=== PATIENT | female | born 1955 | race Caucasian/White ===

== ENCOUNTER 2017-04-15 23:14 | Emergency (ER) | payer BC ==
[2017-04-15 23:20] VITALS: O2SAT 96
--- NOTE | 2017-04-15 23:29 | EDPHY ---
H & P Stated Complaint: red rash on back spreading HPI/ROS: HPI CHIEF COMPLAINT: Rash on back, itchy. HISTORY OF PRESENT ILLNESS: This patient is a 62 otherwise healthy female no significant medical history presents to the emergency room with a rash on her back. Patient reports to me that she is here in [place] she arrived today she is visiting from [facility] she is here for wedding. She states that she has noticed a lesion on her back for approximately a month. She thought was a bug bite. Is not caused her any pain. She has not had any fever joint pain or malaise. She does report tonight that she noticed the rash seemed to be spreading. She called her health insurance hotline was advised to come to the emergency room. Here in the emergency room she appears well nontoxic in no acute distress resting comfortably. She has no fever. The rash itches her periods located on her back. She denies any medical history Past Medical History: Denies medical history does not take any medication Past Surgical History: Denies surgical history Social History: Lives in [facility]. Denies drugs alcohol tobacco. Here for wedding. She is here till Wednesday. Family History: Noncontributory ROS REVIEW OF SYSTEMS: A comprehensive 10 point review of systems is otherwise negative aside from elements mentioned in the history of present illness. Exam Constitutional appears well nontoxic triage nursing summary reviewed, vital signs reviewed, awake/alert. Eyes normal conjunctivae and sclera, EOMI, PERRLA. HENT normal inspection, atraumatic, moist mucus membranes, no epistaxis, neck supple/ no meningismus, no raccoon eyes. Respiratory clear to auscultation bilaterally, normal breath sounds, no respiratory distress, no wheezing. Cardiovascular rate normal, regular rhythm, no murmur, no edema, distal pulses normal. Gastrointestinal soft, non-tender, no rebound, no guarding, normal bowel sounds, no distension, no pulsatile mass. Genitourinary no CVA tenderness. Musculoskeletal no midline vertebral tenderness, full range of motion, no calf swelling, no tenderness of extremities, no meningismus, good pulses, neurovascularly intact. Skin on her back: Left flank region there is a area of darkenking skin pigmentation that is red. There is no fluctuance. No abscess. Does not appear cellulitic. It is not painful. There is no scale. And then surrounding this approximately most for back or about 3/4 of her back in circumference 10 cm x 15 cm with central clearing. There is no raised edges. Neurologic awake, alert and oriented x 3, AAOx3, moves all 4 extremities equally, motor intact, sensory intact, CN II-XII intact, normal cerebellar, normal vision, normal speech. Psychiatric normal mood/affect. Heme/Lymph/Immune no lymphadenopathy. Differential Diagnosis: Includes but is not limited to in a particular order tick borne illness, take born rash, Lyme disease, [place] spotted fever, pityriasis rosacea, vasculitis, cellulitis, MRSA Medical Decision Making: Plan for this patient she appears well nontoxic she does not have a fever here. This rash does not appear to have any petechiae or purpura. Is not warm. It is itchy. There is area of central clearing. She is from [facility]. She does walk her dog in the [place] in her dogs do get Tics. I will start her on doxycycline. 1st dose given in emergency room. A prescription will be given for doxycycline. She is in [facility] till Wednesday. She does understand she develops fever, worsening rash or does not feel well or have any questions or concerns she is to return to the emergency room. When she returns to [place] she should follow up with primary care doctor she understands. Will check basic blood work here. Re-evaluation: 1230AM: Patient resting comfortably no acute distress. She was initially tachycardic at triage due to anxiety. Heart rate is improved down to 100. She has no complaints. She appears well. Started on doxy here in the emergency room. Return precautions given. She understands blood work has been reviewed no high white count. Inflammatory markers are negative. Source: Patient - Personal History Current Tetanus/Diphtheria Vaccine: No - Medical/Surgical History Hx Asthma: No Hx Chronic Respiratory Disease: No Hx Diabetes: No Hx Cardiac Disease: No Hx Renal Disease: No Hx Cirrhosis: No Hx Alcoholism: No Hx HIV/AIDS: No Hx Splenectomy or Spleen Trauma: No Other PMH: denies - Social History Smoking Status: Never smoked Constitutional: Initial Vital Signs Temperature (C) 36.5 C 04/15/17 23:17 Heart Rate 122 H 04/15/17 23:17 Respiratory Rate 18 04/15/17 23:17 Blood Pressure 162/91 H 04/15/17 23:17 O2 Sat (%) 96 04/15/17 23:17 O2 Delivery Mode Room Air Allergies/Adverse Reactions: No Known Allergies Allergy (Unverified 04/15/17 23:20) Home Medications: Medication Instructions Recorded Doxycycline Hyclate 100 mg PO BID #14 tablet 04/15/17 Medical Decision Making - Data Points Laboratory Results: Laboratory Results 04/15/17 23:35 04/15/17 23:35 04/15/17 04/15/17 23:35 23:35 WBC 4.68 10^3/uL 10^3/uL (3.80-9.50) RBC 4.64 10^6/uL 10^6/uL (4.18-5.33) Hgb 14.8 g/dL g/dL (12.6-16.3) Hct 40.9 % % (38.0-47.0) MCV 88.1 fL fL (81.5-99.8) MCH 31.9 pg pg (27.9-34.1) MCHC 36.2 g/dL g/dL (32.4-36.7) RDW 11.3 % L % (11.5-15.2) Plt Count 291 10^3/uL 10^3/uL (150-400) MPV 9.2 fL fL (8.7-11.7) Neut % (Auto) 59.2 % % (39.3-74.2) Lymph % (Auto) 27.8 % % (15.0-45.0) [place] % (Auto) 12.2 % % (4.5-13.0) Eos % (Auto) 0.0 % L % (0.6-7.6) Baso % (Auto) 0.4 % % (0.3-1.7) Nucleat RBC Rel Count 0.0 % % (0.0-0.2) Absolute Neuts (auto) 2.77 10^3/uL 10^3/uL (1.70-6.50) Absolute Lymphs (auto) 1.30 10^3/uL 10^3/uL (1.00-3.00) Absolute Monos (auto) 0.57 10^3/uL 10^3/uL (0.30-0.80) Absolute Eos (auto) 0.00 10^3/uL L 10^3/uL (0.03-0.40) Absolute Basos (auto) 0.02 10^3/uL 10^3/uL (0.02-0.10) Absolute Nucleated RBC 0.00 10^3/uL 10^3/uL (0-0.01) Immature Gran % 0.4 % % (0.0-1.1) Immature Gran # 0.02 10^3/uL 10^3/uL (0.00-0.10) ESR 17 MM/HR MM/HR (0-30) Sodium 144 mEq/L mEq/L (134-144) Potassium 3.3 mEq/L L mEq/L (3.5-5.2) Chloride 103 mEq/L mEq/L (97-110) Carbon Dioxide 25 mEq/l mEq/l (22-31) Anion Gap 16 mEq/L mEq/L (8-16) BUN 15 mg/dL mg/dL (7-23) Creatinine 0.9 mg/dL mg/dL (0.6-1.0) Estimated GFR > 60 Glucose 123 mg/dL H mg/dL (70-100) Calcium 9.5 mg/dL mg/dL (8.5-10.4) C-Reactive Protein 32.0 mg/L H mg/L (<10.0) Medications Given: Discontinued Medications Doxycycline Hyclate (Doxycycline Hyclate) 100 mg PO EDNOW ONE PRN Reason: Protocol Stop: 04/15/17 23:48 Last Admin: 04/15/17 23:54 Dose: 100 mg Departure - Departure Disposition: Home, Routine, Self-Care Clinical Impression: Rash Condition: Good Instructions: Acute Rash (ED) Additional Instructions: 1. Take her doxycycline as prescribed. Take it with food not on an empty stomach. 2. Return emergency room if her rash is worse you do not feel well or develops fever 3. Follow up with her primary care doctor when you return to [place]. Referrals: NONE *PRIMARY CARE P,. [Unknown] - As per Instructions Prescriptions: Doxycycline Hyclate 100 mg PO BID #14 tablet
[2017-04-15] MEDS ORDERED: DOXYCYCLINE HYCLATE 100 MG CAP/TAB PO ONE (23:47)
[2017-04-15 23:52] LABS: % IMMATURE GRANULYOCYTES 0.4 % (0.0-1.1); ABSOLUTE IMMATURE GRANULOCYTES 0.02 10^3/uL (0.00-0.10); ADD DIFF? NO; ADD MORPH? NO; ADD SCAN? NO; ATYPICAL LYMPHOCYTE FLAG 60 (0-99); FRAGMENT RBC FLAG 0 (0-99); HEMATOCRIT 40.9 % (38.0-47.0); HEMOGLOBIN 14.8 g/dL (12.6-16.3); LEFT SHIFT FLG 0 (0-99); LIPEMIA HEMOLYSIS FLAG 90 (0-99); MEAN CELL HEMOGLOBIN 31.9 pg (27.9-34.1); MEAN CELL HEMOGLOBIN CONCENTR. 36.2 g/dL (32.4-36.7); MEAN CELL VOLUME 88.1 fL (81.5-99.8); MEAN PLATELET VOLUME 9.2 fL (8.7-11.7); PLATELET CLUMPS FLAG 0 (0-99); PLATELET COUNT 291 10^3/uL (150-400); RED BLOOD CELL COUNT 4.64 10^6/uL (4.18-5.33); RED CELL DISTRIBUTION WIDTH 11.3 % (11.5-15.2)
[2017-04-16 00:14] LABS: SEDIMENTATION RATE 17 MM/HR (0-30)
[2017-04-16 00:29] LABS: ANION GAP 16 mEq/L (8-16); CALCIUM 9.5 mg/dL (8.5-10.4); CARBON DIOXIDE 25 mEq/l (22-31); CHLORIDE 103 mEq/L (97-110); CREATININE 0.9 mg/dL (0.6-1.0); GLOMERULAR FILTRATION RATE > 60; GLUCOSE 123 mg/dL (70-100); POTASSIUM 3.3 mEq/L (3.5-5.2); SODIUM 144 mEq/L (134-144)
[2017-04-16] MEDS ORDERED: diphenhydrAMINE 25 MG CAP PO ONE (00:43)
[2017-04-16 01:01] VITALS: BP 142/92; PULSE 100; RESP 16; TEMP 98.2
== END 2017-04-16 00:58 | disposition home or self-care (01) ==
DX: R21 Rash and other nonspecific skin eruption (principal)